=== PATIENT | female | born 1965 | race Caucasian/White ===

== ENCOUNTER 2022-01-13 14:41 | Emergency (ER) | payer BC, MEDICARE ==
[2022-01-13] MEDS ORDERED: Ketorolac 60 MG/2 ML SDV IM ONE (15:34)
== END 2022-01-13 16:35 | disposition home or self-care (01) ==
LOC: JD.ED 14:41
DX: S99.912A Unspecified injury of left ankle, initial encounter (principal); R60.0 Localized edema; E66.9 Obesity, unspecified; Z68.41 Body mass index [BMI] 40.0-44.9, adult; Z88.1 Allergy status to other antibiotic agents; Z88.8 Allergy status to other drugs, medicaments and biological substances; Z88.5 Allergy status to narcotic agent; W10.8XXA Fall (on) (from) other stairs and steps, initial encounter
CPT/HCPCS: 73610; 73630; 96372; 99283; J1885

== ENCOUNTER 2022-03-18 06:15 | Day surgery (SDC) | payer BC, MEDICARE ==
[~2022-03-18 06:15] MED LIST: Clindamycin Phosphate in D5W 900 MG in Premix Bag 1 BAG IV ONE; Lactated Ringers 1,000 ML IV SCH; Lidocaine 1%/Sod Bicarbonate in NS 8.4% 1 ML Syringe IDERM PRN; Sodium Chloride 0.9% 10 ML Syringe FLUSH PRN; Sodium Chloride 0.9% 10 ML Syringe FLUSH SCH
[2022-03-18] MEDS ORDERED: Lidocaine 1% 30 ML SDV ONE (06:34)
[2022-03-18] MEDS ORDERED: Triamcinolone Acetonide 40 MG/ML 1 ML SDV ONE (06:34)
[2022-03-18] MEDS ORDERED: Bupivacaine 0.25% 10 ML SDV ONE (06:34)
[2022-03-18] MEDS ORDERED: fentaNYL 100 MCG/2 ML SDV ONE (06:39)
[2022-03-18] MEDS ORDERED: Midazolam 1 MG/ML 2 ML SDV ONE (06:39)
[2022-03-18] MEDS ORDERED: Propofol 200 MG/20 ML SDV ONE (06:39)
[2022-03-18] MEDS ORDERED: traMADol 50 MG Tab PO ONE (08:45)
== END 2022-03-18 08:55 | disposition home or self-care (01) ==
LOC: JD.SDS 06:15
PROVIDERS: ATTEND Orthopaedic Surgery
DX: M65.841 Other synovitis and tenosynovitis, right hand (principal); M65.351 Trigger finger, right little finger; F41.9 Anxiety disorder, unspecified; F32.A Depression, unspecified; M79.7 Fibromyalgia; Z88.8 Allergy status to other drugs, medicaments and biological substances; Z88.5 Allergy status to narcotic agent; Z79.899 Other long term (current) drug therapy; Z98.890 Other specified postprocedural states
CPT/HCPCS: 26055; A9270; J2250; J2704; J3010; J3490; J7120; 01810; J3301

== ENCOUNTER 2022-04-02 06:03 | Day surgery (SDC) | payer BC, MEDICARE ==
[~2022-04-02 06:03] MED LIST changes: -Clindamycin Phosphate in D5W 900 MG in Premix Bag 1 BAG IV ONE
[2022-04-02] MEDS ORDERED: Ondansetron 4 MG/2 ML SDV ONE (06:08)
[2022-04-02] MEDS ORDERED: Propofol 200 MG/20 ML SDV ONE (06:08)
[2022-04-02] MEDS ORDERED: fentaNYL 100 MCG/2 ML SDV ONE (06:09)
[2022-04-02] MEDS ORDERED: Midazolam 1 MG/ML 2 ML SDV ONE (06:09)
[2022-04-02] MEDS ORDERED: Bupivacaine 0.25% 10 ML SDV ONE ×2 (06:12→06:24)
[2022-04-02] MEDS ORDERED: Lidocaine 1% 10 ML MDV ONE (06:12)
[2022-04-02] MEDS ORDERED: Clindamycin Phosphate in D5W 900 MG in Premix Bag 1 BAG IV ONE ×2 (06:21)
[2022-04-02] MEDS ORDERED: Triamcinolone Acetonide 40 MG/ML 1 ML SDV ONE (06:24)
[2022-04-02] MEDS ORDERED: Ondansetron 4 MG/2 ML SDV IVPUSH PRN (07:30)
[2022-04-02] MEDS ORDERED: fentaNYL 100 MCG/2 ML SDV IVPUSH PRN (07:30)
[2022-04-02] MEDS ORDERED: traMADol 50 MG Tab PO ONE (08:14)
== END 2022-04-02 08:36 | disposition home or self-care (01) ==
LOC: JD.SDS 06:03
PROVIDERS: ATTEND Orthopaedic Surgery
DX: M65.351 Trigger finger, right little finger (principal); M65.342 Trigger finger, left ring finger; M19.072 Primary osteoarthritis, left ankle and foot; F41.9 Anxiety disorder, unspecified; F32.A Depression, unspecified; K58.9 Irritable bowel syndrome, unspecified; K21.9 Gastro-esophageal reflux disease without esophagitis; Z88.5 Allergy status to narcotic agent; Z88.1 Allergy status to other antibiotic agents; Z88.6 Allergy status to analgesic agent; Z79.899 Other long term (current) drug therapy; Z98.890 Other specified postprocedural states; Z68.41 Body mass index [BMI] 40.0-44.9, adult; Z90.710 Acquired absence of both cervix and uterus; Z90.49 Acquired absence of other specified parts of digestive tract
CPT/HCPCS: 20605; 26055; A9270; J2250; J2405; J2704; J3010; J3301; J3490; J7120; 01810

== ENCOUNTER 2025-03-16 12:12 | Emergency (ER) | payer BC, MEDICARE ==
[2025-03-16] MEDS: Iopamidol 755 Mg/ML 100 ML Bottle IVPUSH ONE (12:46)
[2025-03-16 12:48] LABS: BASOPHILS ABSOLUTE AUTO 0.0 K/mm3 (0.0-0.2); BASOPHILS PERCENT AUTO 0.3 % (0.0-1.0); EOSINOPHILS ABSOLUTE AUTO 0.1 K/mm3 (0.0-0.4); EOSINOPHILS PERCENT AUTO 1.0 % (0.0-6.0); IMMATURE GRAN ABSOLUTE AUTO 0.02 K/mm3 (0.00-0.05); IMMATURE GRAN PERCENT AUTO 0.3 % (0.0-0.4); LYMPHOCYTES ABSOLUTE AUTO 0.9 K/mm3 (1.0-4.8); LYMPHOCYTES PERCENT AUTO 16.0 % (24.0-44.0); MEAN PLATELET VOLUME 10.2 fl (9.4-12.3); MONOCYTES ABSOLUTE AUTO 0.5 K/mm3 (0.0-0.8); MONOCYTES PERCENT AUTO 8.0 % (0.0-8.0); NEUTROPHILS ABSOLUTE AUTO 4.4 K/mm3 (1.8-7.7); NEUTROPHILS PERCENT AUTO 74.4 % (41.0-71.0); NRBC ABSOLUTE 0.00 (0.00-0.02); NRBC PERCENT 0.0 % (0.0-0.2); PLATELET COUNT,PLT 202 K/mm3 (150-400); RED BLOOD CELL COUNT 4.23 M/mm3 (4.10-5.30); WHITE BLOOD CELL COUNT,WBC 5.89 K/mm3 (3.9-11.3)
[2025-03-16] MEDS: Ondansetron 4 MG/2 ML SDV IVPUSH ONE (12:48)
[2025-03-16] MEDS: Sodium Chloride 0.9% 10 ML Syringe FLUSH PRN (12:48)
[2025-03-16 13:11] LABS: INR 1.01
[2025-03-16 13:12] LABS: PTT,PARTIAL THROMBOPLSTIN TIME 25.5 SECONDS (21.7-31.4)
[2025-03-16 13:17] LABS: A/G RATIO 1.4 (1-2); ALANINE AMINOTRANSFERASE,ALT 35 U/L (14-59); ASPARTATE AMNIOTRANSFERASE,AST 25 U/L (15-37); BILIRUBIN TOTAL 0.8 mg/dL (0.2-1.0); BLOOD UREA NITROGEN,BUN 13 mg/dL (7-18); CARBON DIOXIDE,CO2 23 mEq/L (21-32); CHLORIDE,CL 99 mEq/L (98-107); CREATININE 0.6 mg/dL (0.55-1.02); ESTIMATED GFR 103 mL/min (>60); GLUCOSE RANDOM 142 mg/dL (70-99); POTASSIUM,K 3.3 mEq/L (3.5-5.1); PROTEIN TOTAL,TP 6.7 g/dl (6.4-8.2); SODIUM,NA 135 mEq/L (136-145)
[2025-03-16 13:41] LABS: TROPONIN I HIGH SENSITIVITY < 4 pg/mL (<=51)
[2025-03-16 14:40] LABS: APPEARANCE,URINE CLEAR (Clear); GLUCOSE,URINE NEGATIVE (Negative); OCCULT BLOOD,URINE NEGATIVE (Negative)
[2025-03-16 15:04] LABS: SQUAMOUS EPITHELIAL CELLS,UR 0-5 /hpf (0-5)
== END 2025-03-16 15:55 | disposition home or self-care (01) ==
LOC: JD.ED 12:12
DX: R42 Dizziness and giddiness (principal); N30.00 Acute cystitis without hematuria; E66.9 Obesity, unspecified; Z88.8 Allergy status to other drugs, medicaments and biological substances; Z79.899 Other long term (current) drug therapy
CPT/HCPCS: 36415; 70450; 70496; 70498; 80053; 81001; 82947; 84484; 85025; 85610; 85730; 93005; 96361; 96374; 99285; A9270; J2405; J7030; Q9967; 93010; 99284